=== PATIENT | male | born 1975 | race Caucasian/White ===

== ENCOUNTER 2021-07-30 14:02 | Emergency (ER) | payer MEDICAID ==
[~2021-07-30] VITALS: Ht 160 cm; Wt 90.7 kg
[~2021-07-30 14:02] MED LIST: APIX2.5T PO; ASCO500T20 PO; MAGN400T10 PO; VITD2000 PO; Zinc Sulfate PO
[2021-07-30 14:40] VITALS: BP_SYST 153
--- NOTE | 2021-07-30 15:00 | NUR ---
Patient to ER bed tent1 to gown for evaluation. Side rails up. Assumed care.
--- NOTE | 2021-07-30 15:05 | NUR ---
Kenia and Inf A&B collected and sent
--- NOTE | 2021-07-30 15:20 | NUR ---
ER at bedside examining patient.
--- NOTE | 2021-07-30 15:50 | NUR ---
Pt informed on COVID + result.
[2021-07-30 16:00] VITALS: BP_SYST 153
--- NOTE | 2021-07-30 16:00 | NUR ---
Patient given written and verbal discharge instructions and verbalizes understanding. ER MD discussed with patient the results and treatment provided. Patient in stable condition. ID arm band removed. no Rx of given. Patient educated on pain management and to follow up with PMD. Pain Scale 2 Opportunity for questions provided and answered. Medication side effect fact sheet provided.
== END 2021-07-30 16:00 | disposition home or self-care (01) ==
LOC: SED 14:02
DX: U07.1 COVID-19 (principal); Z79.899 Other long term (current) drug therapy
CPT/HCPCS: 36415; 99283

== ENCOUNTER 2023-01-01 10:10 | Emergency (ER) | payer MEDICAID ==
[~2023-01-01] VITALS: Ht 162.6 cm; Wt 90.7 kg
[2023-01-01 10:18] VITALS: BP_SYST 147; PULSE 85; RESP 18; TEMP 98.3; O2SAT 98
[2023-01-01 10:33] LABS: BASOPHILS % (AUTO) 0.3 % (0.0-2.0); EOSINOPHILS # (AUTO) 0.2 K/uL (0.0-0.4); HEMOGLOBIN 16.5 g/dL (14.0-18.0); LYMPHOCYTES # (AUTO) 2.3 K/uL (1.0-5.5); LYMPHOCYTES % (AUTO) 19.4 % (20.5-51.5); MEAN CORPUSCULAR HEMOGLOBIN 30 pg (27-31); MEAN CORPUSCULAR HGB CONC 33 % (32-36); MEAN CORPUSCULAR VOLUME 92 fL (79.0-98.0); MONOCYTES # (AUTO) 1.1 K/uL (0.0-1.0); MONOCYTES % (AUTO) 9.6 % (1.7-9.3); NEUTROPHILS # (AUTO) 8.2 K/uL (1.8-7.7); NEUTROPHILS % (AUTO) 68.7 % (40.0-70.0); PLATELET COUNT (AUTO) 208 K/uL (130-430); RED BLOOD CELL COUNT(AUTO) 5.45 MIL/uL (4.2-6.2); RED CELL DISTRIBUTION WIDTH 13.3 % (9.0-15.0)
[2023-01-01] MEDS ORDERED: ONDANSETRON 4 MG ODT TAB ONE (10:34)
[2023-01-01 10:53] LABS: ALBUMIN 3.7 g/dL (3.4-4.8); CREATININE 0.92 mg/dL (0.55-1.30); POTASSIUM 3.7 mmol/L (3.5-5.1); TOTAL PROTEIN, SERUM 7.6 g/dL (6.4-8.3)
[2023-01-01] MEDS ORDERED: AMOX-423 PO (11:38)
[2023-01-01] MEDS ORDERED: IBUP-1971 PO (11:38)
[2023-01-01] MEDS ORDERED: AMOXICILLIN/POTASSIUM CLAV 875 MG TABLET PO ONE (11:45)
[2023-01-01 12:00] VITALS: BP_SYST 136; PULSE 87; RESP 18; TEMP 98.3; O2SAT 98
== END 2023-01-01 12:00 | disposition home or self-care (01) ==
LOC: SED 10:10
DX: K42.9 Umbilical hernia without obstruction or gangrene (principal); K57.92 Diverticulitis of intestine, part unspecified, without perforation or abscess without bleeding; Z79.899 Other long term (current) drug therapy
CPT/HCPCS: 36415; 76376; 80053; 82150; 83605; 83690; 85025; 99284; Q0162

== ENCOUNTER 2023-01-03 08:40 | Emergency (ER) | payer MEDICAID ==
[~2023-01-03] VITALS: Ht 160 cm; Wt 86.2 kg
[~2023-01-03 08:40] MED LIST changes: +AMOX-423 PO; +IBUP-1971 PO
[2023-01-03 08:50] VITALS: BP_SYST 126; PULSE 69; RESP 16; TEMP 97.8; O2SAT 99
[2023-01-03 10:49] LABS: HEMOGLOBIN 16.9 g/dL (14.0-18.0); RED BLOOD CELL COUNT(AUTO) 5.55 MIL/uL (4.2-6.2); WHITE BLOOD COUNT (AUTO) 10.9 K/uL (4.8-10.8)
[2023-01-03 10:50] LABS: HEMATOCRIT 51.4 % (36-54); MEAN CORPUSCULAR HEMOGLOBIN 31 pg (27-31); MEAN CORPUSCULAR VOLUME 93 fL (79.0-98.0)
[2023-01-03 10:51] LABS: MEAN CORPUSCULAR HGB CONC 33 % (32-36); PLATELET COUNT (AUTO) 218 K/uL (130-430); RED CELL DISTRIBUTION WIDTH 13.3 % (9.0-15.0)
[2023-01-03 10:52] LABS: BASOPHILS % (AUTO) 0.4 % (0.0-2.0); EOSINOPHILS # (AUTO) 0.3 K/uL (0.0-0.4); EOSINOPHILS % (AUTO) 3.1 % (0.0-4.0); LYMPHOCYTES % (AUTO) 18.2 % (20.5-51.5); MONOCYTES % (AUTO) 9.2 % (1.7-9.3); NEUTROPHILS # (AUTO) 7.6 K/uL (1.8-7.7); NEUTROPHILS % (AUTO) 69.1 % (40.0-70.0)
[2023-01-03 10:58] LABS: CALCIUM 9.3 mg/dL (8.4-11.0); CREATININE 1.03 mg/dL (0.55-1.30); POTASSIUM 4.1 mmol/L (3.5-5.1)
[2023-01-03 11:26] LABS: ALBUMIN 3.6 g/dL (3.4-4.8)
[2023-01-03 11:44] LABS: TOTAL BILIRUBIN 1.2 mg/dL (0.0-1.0)
[2023-01-03 11:45] LABS: TOTAL PROTEIN, SERUM 7.9 g/dL (6.4-8.3)
[2023-01-03 12:21] VITALS: BP_SYST 123; PULSE 80; RESP 16; TEMP 98.1; O2SAT 95
== END 2023-01-03 12:23 | disposition home or self-care (01) ==
LOC: SED 08:40
DX: K57.92 Diverticulitis of intestine, part unspecified, without perforation or abscess without bleeding (principal); R10.30 Lower abdominal pain, unspecified; R14.0 Abdominal distension (gaseous); Z79.899 Other long term (current) drug therapy
CPT/HCPCS: 36415; 80053; 82150; 83605; 83690; 85025; 99283

== ENCOUNTER 2023-03-08 08:20 | Emergency (ER) | payer MEDICAID ==
[~2023-03-08] VITALS: Ht 162.6 cm; Wt 89.8 kg
[2023-03-08 08:20] VITALS: BP_SYST 105; PULSE 68; RESP 19; TEMP 97.5; O2SAT 98
[~2023-03-08 08:20] MED LIST changes: -APIX2.5T PO; -ASCO500T20 PO; -IBUP-1971 PO; +METR-154 PO; -VITD2000 PO
[2023-03-08] MEDS ORDERED: KETOROLAC TROMETHAMINE 60 MG/2 ML VIAL IM ONE (08:30)
[2023-03-08 09:27] LABS: BASOPHILS % (AUTO) 0.4 % (0.0-2.0); EOSINOPHILS # (AUTO) 0.2 K/uL (0.0-0.4); EOSINOPHILS % (AUTO) 2.6 % (0.0-4.0); HEMATOCRIT 48.6 % (36-54); HEMOGLOBIN 15.9 g/dL (14.0-18.0); LYMPHOCYTES # (AUTO) 1.6 K/uL (1.0-5.5); LYMPHOCYTES % (AUTO) 24.3 % (20.5-51.5); MEAN CORPUSCULAR HEMOGLOBIN 31 pg (27-31); MEAN CORPUSCULAR HGB CONC 33 % (32-36); MEAN CORPUSCULAR VOLUME 93 fL (79.0-98.0); MONOCYTES # (AUTO) 0.6 K/uL (0.0-1.0); MONOCYTES % (AUTO) 9.6 % (1.7-9.3); NEUTROPHILS # (AUTO) 4.1 K/uL (1.8-7.7); NEUTROPHILS % (AUTO) 63.1 % (40.0-70.0); PLATELET COUNT (AUTO) 213 K/uL (130-430); RED CELL DISTRIBUTION WIDTH 13.9 % (9.0-15.0); WHITE BLOOD COUNT (AUTO) 6.5 K/uL (4.8-10.8)
[2023-03-08 09:34] LABS: CALCIUM 9.6 mg/dL (8.4-11.0); CREATININE 0.74 mg/dL (0.55-1.30); POTASSIUM 4.3 mmol/L (3.5-5.1)
[2023-03-08 09:45] LABS: BILIRUBIN,URINE NEGATIVE (NEGATIVE); BLOOD, URINE NEGATIVE (NEGATIVE); CLARITY/URINE CLEAR (CLEAR); COLOR,URINE YELLOW (YELLOW); GLUCOSE,URINE NEGATIVE (NEGATIVE); KETONES,URINE NEGATIVE (NEGATIVE); LEUKOCYTE ESTERASE ,URINE NEGATIVE (NEGATIVE); NITRITE, URINE NEGATIVE (NEGATIVE); PH,URINE 6.5 (5.0-8.0); PROTEIN URINE NEGATIVE (NEGATIVE)
[2023-03-08 09:47] LABS: ALBUMIN 3.9 g/dL (3.4-4.8); BILIRUBIN,DIRECT 0.3 mg/dL (0.0-0.3); TOTAL BILIRUBIN 1.6 mg/dL (0.0-1.0); TOTAL PROTEIN, SERUM 7.4 g/dL (6.4-8.3)
[2023-03-08] MEDS ORDERED: AMOX-423 PO (11:06)
[2023-03-08] MEDS ORDERED: METR-154 PO (11:06)
[2023-03-08] MEDS ORDERED: TRAM50TA2 PO (11:07)
[2023-03-08 11:13] VITALS: BP_SYST 105; PULSE 68; RESP 19; TEMP 97.5; O2SAT 98
== END 2023-03-08 11:12 | disposition home or self-care (01) ==
LOC: SED 08:20
DX: K57.92 Diverticulitis of intestine, part unspecified, without perforation or abscess without bleeding (principal); R10.32 Left lower quadrant pain; Z79.899 Other long term (current) drug therapy
CPT/HCPCS: 99284; 74176; 80076; 80048; 81001; 83690; 85025; 87040; 87086; 36415; 76376; 83605; 81003; J1885